=== PATIENT | female | born 1945 | race Caucasian/White ===

== ENCOUNTER 2021-01-19 07:56 | Outpatient (CLI) | payer MEDICARE ==
[~2021-01-19 07:56] MED LIST: REGADENOSON 0.4 MG/5 ML SYRINGE ONE
== END 2021-01-19 23:59 | disposition home or self-care (01) ==
LOC: CFH 07:56
PROVIDERS: ATTEND Internal Medicine Clinical Cardiac Electrophysiology
DX: I10 Essential (primary) hypertension (principal); R01.1 Cardiac murmur, unspecified; I44.7 Left bundle-branch block, unspecified
CPT/HCPCS: 78452; 93017; A9502; J2785